=== PATIENT | male | born 1950 | race African-American/Black ===

== ENCOUNTER → 2019-06-27 12:45 | Outpatient (CLI) | payer MEDICARE, MEDICAID, SELFPAY | PROVIDERS: PCP Family Medicine; Referring Provider Podiatrist; Visit Provider Family Medicine | DX: G60.8 Other hereditary and idiopathic neuropathies (principal); L97.513 Non-pressure chronic ulcer of other part of right foot with necrosis of muscle; L08.9 Local infection of the skin and subcutaneous tissue, unspecified; M20.41 Other hammer toe(s) (acquired), right foot | CPT/HCPCS: 11043; 36415; 73630; 80053; 84134; 85025; 85651; 86140; 87070; 87075; 87205; 99203; 99213 ==

== ENCOUNTER → 2019-06-27 15:20 | Outpatient (CLI) | payer MEDICARE, MEDICAID, SELFPAY ==
--- NOTE | 2019-06-27 15:27 | DI.RAD.S_ITS ---
PROCEDURE: XR FOOT RT MIN 3V INDICATIONS: R 1ST MTH PALNTAR ULCER EVAL FOR OSTEOMYELLITS TECHNIQUE: 3 views of the foot were acquired. COMPARISON: None. FINDINGS: Bones: No fractures or dislocations. No suspicious bony lesions. Amputation of the second digit from the metatarsal head level. Mild first MTP and diffuse interphalangeal joint narrowing. Moderate narrowing of the first and second tarsometatarsal joints with prominent dorsal osteophytosis. Multiple hammertoe deformities. Soft tissues: No tibiotalar joint effusion. Achilles tendon appears normal. IMPRESSION: 1. Although no bony erosions are identified, plain film radiography is relatively insensitive in the acute phases of osteomyelitis and may not demonstrate radiographic changes for 15 days. If acute osteomyelitis is of clinical concern, nuclear medicine regional bone scan or MRI is recommended. 2. Background ostectomy changes, most notably involving the first and second tarsometatarsal joints. 3. Amputation of the second digit. 4. Multiple hammertoe deformities. Dictated by: Abram Tyler [facility] Interpreted: Daniel Pollard MD on 06/27/2019 at 15:57 Approved by: Daniel Pollard M.D. on 06/27/2019 at 17:04
[2019-06-27 17:00] LABS: Add Manual Diff / Slide Review NO; Basophils Absolute Auto 100 /uL (0-100); Basophils Percent Auto 1.4 % (0-2); Eosinophils Absolute Auto 100 /uL (0-450); Eosinophils Percent Auto 0.9 % (2-4); Hematocrit 38.3 % (41-53); Hemoglobin 12.6 g/dL (13.5-17.5); Lymphocytes Absolute Auto 2300 /uL (1100-4500); Lymphocytes Percent Auto 34.4 % (25-40); Mean Corpuscular Hemoglobin 28.3 PG (26-34); Mean Corpuscular Volume 85.9 fL (80-100); Monocytes Absolute Auto 400 /uL (0-900); Monocytes Percent Auto 5.9 % (3-14); Neutrophils Absolute Auto 3800 /uL (1500-7000); Neutrophils Percent Auto 57.4 % (50-75); Platelet Count 284 X10^3/uL (150-400); Red Blood Cell Count 4.46 X10^6/uL (4.5-5.9); Red Cell Distribution Width 13.8 % (11.6-14.8); White Blood Cell Count 6.6 X10^3/uL (4.5-11.0)
[2019-06-27 17:19] LABS: Alanine Aminotransferase 20 IU/L (<50); Albumin 4.5 g/dL (3.5-5.0); Albumin Globulin Ratio 1.2 (1.0-2.8); Alkaline Phosphatase 133 U/L (38-126); Aspartate Aminotransferase 29 IU/L (17-59); BUN Creatinine Ratio 7.6 (6-22); Bilirubin Total 0.7 mg/dL (0.2-1.3); Blood Urea Nitrogen 9 mg/dL (9-20); Calcium 9.3 mg/dL (8.4-10.2); Carbon Dioxide 28 mmol/L (22-32); Chloride 102 mmol/L (98-107); Erythrocyte Sedimentation Rate 28 MM/HR (0-15); Estimated Glomerular Filt Rate > 60.0 mL/min (>60); Globulin 3.9 g/dL (1.7-4.1); Glucose 90 mg/dL (80-110); HEMOLYSIS < 15 (0-50); Potassium 4.3 mmol/L (3.4-5.1); Sodium 139 mmol/L (137-145); Total Protein 8.4 g/dL (6.3-8.2)
[2019-06-27 17:20] LABS: C-Reactive Protein Quant < 0.5 mg/dL (<1.0)
[2019-06-27 17:24] LABS: Prealbumin 26.7 mg/dL (17.6-36.0)
== END ==
PROVIDERS: PCP Family Medicine; Referring Provider Family Medicine; Visit Provider Family Medicine
DX: L97.513 Non-pressure chronic ulcer of other part of right foot with necrosis of muscle (principal); G60.8 Other hereditary and idiopathic neuropathies; L08.9 Local infection of the skin and subcutaneous tissue, unspecified; M20.41 Other hammer toe(s) (acquired), right foot
CPT/HCPCS: 36415; 73630; 80053; 84134; 85025; 85651; 86140

== ENCOUNTER → 2019-07-06 13:56 | Outpatient (CLI) | payer MEDICARE, MEDICAID, SELFPAY | PROVIDERS: PCP Family Medicine; Referring Provider Podiatrist; Visit Provider Family Medicine | DX: L97.511 Non-pressure chronic ulcer of other part of right foot limited to breakdown of skin (principal); G60.8 Other hereditary and idiopathic neuropathies | CPT/HCPCS: 11042 ==

== ENCOUNTER → 2019-07-27 12:56 | Outpatient (CLI) | payer MEDICARE, MEDICAID, SELFPAY | PROVIDERS: PCP Family Medicine; Referring Provider Family Medicine; Visit Provider Family Medicine | DX: G60.8 Other hereditary and idiopathic neuropathies (principal); L97.511 Non-pressure chronic ulcer of other part of right foot limited to breakdown of skin | CPT/HCPCS: 11042 ==

== ENCOUNTER → 2019-08-24 11:37 | Outpatient (CLI) | payer MEDICARE, MEDICAID, SELFPAY | PROVIDERS: PCP Family Medicine; Referring Provider Family Medicine; Visit Provider Family Medicine | DX: G60.8 Other hereditary and idiopathic neuropathies (principal); L97.511 Non-pressure chronic ulcer of other part of right foot limited to breakdown of skin | CPT/HCPCS: 97597 ==

== ENCOUNTER → 2019-08-31 16:22 | Outpatient (CLI) | payer MEDICARE, MEDICAID, SELFPAY | PROVIDERS: PCP Family Medicine; Referring Provider Family Medicine; Visit Provider Family Medicine | DX: G60.8 Other hereditary and idiopathic neuropathies (principal); L97.511 Non-pressure chronic ulcer of other part of right foot limited to breakdown of skin | CPT/HCPCS: 97597 ==

== ENCOUNTER → 2019-09-07 11:37 | Outpatient (CLI) | payer MEDICARE, MEDICAID, SELFPAY | PROVIDERS: PCP Family Medicine; Referring Provider Family Medicine; Visit Provider Family Medicine | DX: G60.8 Other hereditary and idiopathic neuropathies (principal); L97.511 Non-pressure chronic ulcer of other part of right foot limited to breakdown of skin | CPT/HCPCS: 97597 ==

== ENCOUNTER → 2019-09-14 13:20 | Outpatient (CLI) | payer MEDICARE, MEDICAID, SELFPAY | PROVIDERS: PCP Family Medicine; Referring Provider Family Medicine; Visit Provider Family Medicine | DX: G60.8 Other hereditary and idiopathic neuropathies (principal) | CPT/HCPCS: 99212; 99213 ==